=== PATIENT | female | born 1990 | race Caucasian/White ===

== ENCOUNTER 2018-05-14 22:26 | Emergency (ER) | payer SELFPAY ==
[~2018-05-14] VITALS: Ht 152.4 cm; Wt 64.5 kg
[~2018-05-14 22:26] MED LIST: CEPHALEXIN500 M1 PO; FERROUS SU325 MG/TAB PO; LEXAPRO 10MG10 MG PO; MOTRIN 600600 MG/TAB PO; MOTRIN 800800 MG/TAB PO; PERCOCET 325 MG1 TA2 PO; PRENATAL PO; PRENATAL1 TA7 PO; SENOKOT S 50 MG1 TAB PO
[2018-05-14 22:30] VITALS: TEMP 98.4
[2018-05-14 23:04] LABS: COLLECTION METHOD CLEAN CATCH
[2018-05-14 23:07] LABS: BASO % 0.3 % (0.0-2.0); EOS # 0.1 (0.0-0.7); EOS % 1.4 % (0-4.0); GRAN # 4.4 (1.4-6.5); GRAN % 55.7 % (42.2-75.2); HEMATOCRIT 37.7 % (37.0-47.0); HEMOGLOBIN 12.5 g/dl (12.5-16.0); LYMPH # 2.5 (1.2-3.4); LYMPH % 31.2 % (20.0-51.0); MEAN CELL VOLUME 93 fl (80.0-100.0); MEAN CORPUSCULAR HEMOGLOBIN 31 pg (27.0-31.0); MEAN CORPUSCULAR HGB CONC 33 g/dl (33.0-37.0); MEAN PLATELET VOLUME 10.3 fl (7.4-10.4); MONO # 0.9 (0.1-0.6); MONO % 11.3 % (1.7-9.3); PLATELET COUNT 342 K/mm3 (130-400); RED BLOOD COUNT 4.06 M/mm3 (4.10-5.30); REDCELL DISTRIBUTION WIDTH-CV 12.2 % (11.5-14.5)
[2018-05-14 23:14] LABS: MUCOUS Present /lpf; PH 6 (5-8); SQUAMOUS EPITHELIAL 0-2 /hpf; URINE APPEARANCE Hazy; URINE BACTERIA None Seen /hpf; URINE BILIRUBIN Negative (NEGATIVE); URINE BLOOD 3+ (NEGATIVE); URINE CALCIUM OXALATE CRYSTAL Present /hpf; URINE COLOR Yellow; URINE GLUCOSE Negative (NEGATIVE); URINE KETONE Negative (NEGATIVE); URINE LEUKOCYTE ESTERASE Negative (NEGATIVE); URINE NITRATE Negative (NEGATIVE); URINE PROTEIN(semi-quant) Negative (NEGATIVE); URINE RBC >50 /hpf; URINE UROBILINOGEN Negative (NEGATIVE)
[2018-05-14 23:20] LABS: ALBUMIN 4.4 gm/dL (3.5-5.0); BILIRUBIN,TOTAL 0.4 mg/dL (0.0-1.0); CALCIUM 9.8 mg/dL (8.4-10.2); CREATININE, serum 0.56 mg/dL (0.52-1.25); POTASSIUM 4.6 mmol/L (3.4-5.0); TOTAL PROTEIN 8.5 gm/dL (6.4-8.2)
[2018-05-15 01:56] VITALS: BP 117/73
[2018-05-15 02:28] VITALS: PULSE 69
== END 2018-05-15 02:29 | disposition home or self-care (01) ==
LOC: COL.ER 22:26
PROVIDERS: Physician Assistant
DX: O03.9 Complete or unspecified spontaneous abortion without complication (principal)
CPT/HCPCS: J7030

== ENCOUNTER 2020-09-17 22:53 | Emergency (ER) | payer SELFPAY ==
[2020-09-17] MEDS ORDERED: AMOXICILLIN875 MG PO (23:20)
[2020-09-17] MEDS ORDERED: NORCO 325 MG-51 TAB PO (23:20)
[2020-09-17 23:39] VITALS: BP 114/70; PULSE 80
== END 2020-09-17 23:39 | disposition home or self-care (01) ==
LOC: COL.ER 22:53
DX: K03.81 Cracked tooth (principal); X58.XXXA Exposure to other specified factors, initial encounter
CPT/HCPCS: J1885